=== PATIENT | female | born 1965 | race Caucasian/White ===

== ENCOUNTER 2025-08-25 21:30 | Outpatient (CLI) | payer BC, SELFPAY | END 2025-08-25 21:31 | disposition home or self-care (01) | LOC: AMB 08-29 12:18 | PROVIDERS: Visit Provider Emergency Medicine | DX: M54.9 Dorsalgia, unspecified (principal) | CPT/HCPCS: A0425; A0429 ==

== ENCOUNTER 2025-08-25 22:13 | Emergency (ER) | payer BC, SELFPAY ==
[2025-08-25 22:18] VITALS: BP 139/80; PULSE 94; RESP 18; TEMP 36.6; O2SAT 98; BMI 25.8
--- NOTE | 2025-08-25 23:01 | ED_ITS ---
HPI - General Adult General Chief complaint: Back Injury/Pain Stated complaint: back pain Time Seen by Provider: 08/25/25 22:25 History of Present Illness HPI narrative: back pain started this AM , states worsened throughout day. sharp pain. lidocaine patch , tylenol ibuprofen. pain 8/10. hurts with movement, no radiation down legs. no hx in past, denies trauma. no numbness. IV EMS 20 LFA no meds 60-year-old woman presenting to the emergency department with complaint of s evere low back pain. Began this morning around waking and has escalated throughout the course the day. She noted at some point screaming in pain. Does have a history of a flare of back pain some years ago but not as bad as this. Otherwise typically does not have back pain. This escalated to the point of knowing that she just simply was not going to be able to move. Had been trying some ibuprofen, acetaminophen, lidocaine patch. Arrives via EMS. Review of Systems Status of ROS: Reports: 6 or more systems reviewed and unremarkable except as noted in History and below PFSH PFS Social History Smoking Status: Never smoker Second hand tobacco smoke exposure: No How often do you have a drink containing alcohol: never AUDIT-C Alcohol total score: 0 Non-prescribed substance use: denies use Exam Narrative: Exam Narrative: Arise crying out in pain. Pain has settled again by the time I arrived to see Ms. Mishra. Is clearly uncomfortable. Seated stiffly in exam chair hesitant to move. Straight leg raise is negative but on the left does start to cause more pulling. Has pain in SI joint area to palpation left greater than right. Generally quite tense back musculature. No midline back pain. Const: Vital Signs, click to edit/add: Vital Signs - 24 hr 08/25/25 22:18 Temperature 98 F Pulse Rate [Pulse Oximeter] 94 Respiratory Rate 18 Blood Pressure [Ri ght Upper Arm] 139/80 Pulse Oximetry 98 Oxygen Delivery Me thod Room Air Documenting provider has reviewed patient's vital signs: yes Course Vital Signs Vital signs: Initial Vital Signs Temperature 98 F 08/25/25 22:18 Temperature Source Temporal Artery Scan 08/25/25 22:18 Pulse Rate 94 08/25/25 22:18 Respiratory Rate 18 08/25/25 22:18 Blood Pressure 139/80 08/25/25 22:18 Blood Pressure Mean 99 08/25/25 22:18 Blood Pressure Position Sitting 08/25/25 22:18 Pulse Oximetry 98 08/25/25 22:18 Oxygen Delivery Method Room Air 08/25/25 22:18 Vital Signs Temperature 98 F 08/25/25 22:18 Pulse Rate 94 08/25/25 22:18 Respiratory Rate 18 08/25/25 22:18 Blood Pressure 139/80 08/25/25 22:18 Pulse Oximetry 98 08/25/25 22:18 Oxygen Delivery Method Room Air 08/25/25 22:18 Temperature 98 F 08/26/25 01:34 Pulse Rate 81 08/26/25 01:34 Respiratory Rate 18 08/26/25 01:34 Blood Pressure 135/87 08/26/25 01:34 Pulse Oximetry 98 08/26/25 01:18 Oxygen Delivery Method Room Air 08/26/25 01:18 Medications Administered Medications: Discontinued Medications Generic Name Dose Route Start Last Admin Trade Name Shelton PRN Reason Stop Dose Admin Diazepam 5 mg 08/25/25 23:25 08/25/25 23:33 Diazepam 5 Mg/Ml Inj IV 08/25/25 23:26 5 mg ONCE ONE Administration Hydromorphone HCl 0.5 mg 08/25/25 23:25 08/25/25 23:33 Hydromorphone 0.5 Mg/0.5 Ml Inj IVP 08/25/25 23:26 0.5 mg ONCE ONE Administration Ketorolac Tromethamine 15 mg 08/25/25 23:25 08/25/25 23:33 Ketorolac 15 Mg/Ml Inj IVP 08/25/25 23:26 15 mg ONCE ONE Administration Prednisone 60 mg 08/25/25 23:25 08/25/25 23:33 Prednisone 20 Mg Tablet PO 08/25/25 23:26 60 mg ONCE ONE Administration Medical Decision Making MDM Narrative Medical decision making narrative: Has not had any particular trauma. Does not have the kind of radicular symptoms that I would suspect to be discogenic. I think this is some combination of sacral iliac joint dysfunction or perhaps facet irritation of the low back that has also resulted in runaway muscle spasm. While she is anticipating having to soil herself not being able to move for pain, this is not actually a loss of bowel or bladder control. Will address symptoms primarily here. Will be giving at same time ketorolac, diazepam, hydromorphone, prednisone. On reassessment overall is improved. Able to mobilize though still with flares of pain. Less so. Did discuss potential admission but feels would like to be able to manage at home. Following discharge was called to assist further as was experiencing significant pain when Alejandra got into their vehicle. Appeared to be particularly tense and in pain in the paraspinal musculature of the mid low back on the left. Had considered binder of some sort but did then at this point go to get an abdominal binder which we fit in place in front seat of car. She did feel that this was somewhat helpful. See patient discharge plan for further discussion I am happy you're feeling better. You received a dose of Dilaudid, Valium, ketorolac and some prednisone. Of course take it easy with transitions. I would consider applying ice packs to your low back over the next couple of days. Take 400-600 mg of ibuprofen 3 times daily over the next 4 days; ideally with little food. As discussed from [employer] I am prescribing a ?muscle relaxer? cyclobenzaprine, prednisone, Percocet (contains oxycodone 5 mg (an opiate) and 325 mg of acetaminophen in each tablet) See handout for some stretches for sacroiliac joint pain and low back pain that might be helpful to do longer-term. I would consider following up in 5-7 days for a re-evaluation and hopefully more clear diagnosis. Return for marked increase in persistent/uncontrolled pain, new and focal weakness. Medical Records Medical records reviewed: Yes I reviewed the patient's medical records Discharge Plan Discharge Clinical Impression: Severe low back pain Patient Disposition: Home w/ Parent or Adult Condition: Improved Instructions: Acute Low Back Pain (ED) Additional Instructions: I am happy you're feeling better. You received a dose of Dilaudid, Valium, ketorolac and some prednisone. Of course take it easy with transitions. I would consider applying ice packs to your low back over the next couple of days. Take 400-600 mg of ibuprofen 3 times daily over the next 4 days; ideally with little food. As discussed from [employer] I am prescribing a ?muscle relaxer? cyclobenzaprine, prednisone, Percocet (contains oxycodone 5 mg (an opiate) and 325 mg of acetaminophen in each tablet) See handout for some stretches for sacroiliac joint pain and low back pain that might be helpful to do longer-term. I would consider following up in 5-7 days for a re-evaluation and hopefully more clear diagnosis. Return for marked increase in persistent/uncontrolled pain, new and focal weakness. Follow Up/Referrals: Provider,Not a Local [Primary Care Provider, Family Practice] Stand Alone Forms: [employer] Info Instructions
[2025-08-25] MEDS: diazePAM 5 MG/ML inj IV (23:33)
[2025-08-25 23:40] VITALS: O2SAT 98
--- OUTSIDE RECORDS SUMMARY | 2025-08-26 00:04 | XMS_ITS | Clinical Summary ---
Author Organization [employer] Address [address] [place] [id number] Care Team Providers Care Cable Installation Manager Name Role Phone Pcp, No Primary Care Provider Unavailabl e Allergies No known active allergies Medications albuterol sulfate (ALBUTEROL INHL) Inhale 90 mcg by mouth 4 times daily if needed (sob). Active buPROPion (WELLBUTRIN XL) 150 mg Extended-Release tablet Take 300 mg by mouth once daily. Active hydrOXYzine HCL (ATARAX) 25 mg tablet Take 25 mg by mouth every 6 hours if needed for Itching or Anxiety. Active meloxicam (Mobic) 15 mg tablet Take 15 mg by mouth once daily. Active SEMIWEEKLY patch estradiol (Vivelle-Dot) 0.05 mg/24 hr SEMIWEEKLY transdermal patch Apply 1 Patch on dry, clean, hairless skin every Thursday and . Active PROGESTERONE 50 MG VAGINAL SUP (AHC AMB MIXTURE) Active traMADoL (Ultram) 50 mg tabletIndication s:Tear of medial meniscus of knee, current, unspecified laterality, unspecified tear type, initial encounter Take 1 Tablet (50 mg) by mouth every 6 hours if needed for Pain. 16 Tablet 4 Active Active Problems No known active problems Social History Tobacco Use Types Packs/Day Years Used Date Smoking Tobacco: Never Passive Smoke Exposure: Never Smokeless Tobacco: Never Tobacco Cessation:Counseling Given: No Comments:never Alcohol Use Standard Drinks/Week Comments Yes 0 (1 standard drink = 0.6 oz pur e alcohol) 2-3x week, wine Comments No Sex and Gender Information Value Date Recorded Sex Assigned at Not on file Legal Sex Female 7:46 AM CDT Gender Identity Not on file Sexual Orientation Not on file Obstetrics History Last Filed Vital Signs Vital Sign Reading Time Taken Comments Blood Pressure 110/61 09/22/2024 2:55 PM [employer] Pulse 68 09/22/2024 2:55 PM [employer] Temperature 36.5 C (97.7 F) 09/22/2024 2:09 PM [employer]PER[employer] Respiratory Rate 16 09/22/2024 2:55 PM [employer] OPER[employer] Oxygen Saturation 97% 09/22/2024 2:55 PM [employer] OPER[employer] Inhaled Oxygen Concentration - - Weight 71.3 kg (157 lb 3.2 oz) 09/22/2024 11:42 AM [employer]ONE MILL OPERATOR Height 166.5 cm (5' 5.55) 09/08/2024 12:[address] Body Mass Index 25.72 09/08/2024 12:00 PM [employer]ONE MILL OPERATOR Plan of Treatment Health Maintenance Due Date Last Done Comments Tetanus booster 1975 Depression screening for age 12+ 1976 HIV for age 15-65 1979 BMI (ht and wt on same day) for age 18+ 1982 Hepatitis C screening for ag e 18-79 1982 Pap test for age 21-65 1985 Lipids for age 45-75 2009 Mammogram for age 45-75 2009 Pneumococcal series for age 50+ (1 of 1 - PCV) 2014 Zoster (shingles) series for age 50+ (1 of 2) 2014 COVID-19 vaccine series (2 - season) 2025 11/05/2021 Influenza Vaccine (#1) 2025 Colonoscopy through age 75 08/25/2032 08/25/2022 RSV vaccine for adults or (1 - 1-dose 75+ series) 2039 Hepatitis B series for 19+ Aged Out N o longer eligible based on patient's age to complete this topic Procedures Procedure Name Priority Date/Time Associated Diagnosis Comments COLONOSCOPY 08/25/2022 8:04 AM CDT from Last 3 Months or Most Recently Relevant to Health Maintenance Results * COLONOSCOPY (08/25/2022 8:04 AM CDT) 08/25/2022 8:04 AM CDT Narrative Transcriptions Dina Coffey MD - 08/25/2022 8:57 AM CDT Patient Name: Alejandra Mishra Procedure Date: 08/25/2022 Gender: Female Date of : 1965 Admit Type: Ambulatory Procedure: Colonoscopy Proceduralist: Dina Coffey MD [facility] Referring MD: Brandy Barraza Indications/Pre-Op Diagnosis: Screening for colorectal malignantneoplasm Medications: Monitored Anesthesia Care Procedure Description: The procedure, indications, potential complications, (bleeding, perforation, infection, adverse medication reaction, missed lesionsor polyps) and alternatives available were explained to the patient, who appeared to understand and indicated this. Opportunity for questionswas provided and informed consent obtained. The endoscope [id number] was passed through the anus andadvanced to the terminal ileum, with identification of the appendiceal orifice and IC valve. The colonoscopy was somewhat difficult due to atortuous colon. Successful completion of the procedure was aided by usingmanual pressure. The patient tolerated the procedure well. The quality ofthe bowel preparation was evaluated using the BBPS (Grethel BowelPreparation Scale) with scores of: Right Colon = 2 (minor amount of residual staining, small fragments of stool and/or opaque liquid, but mucosaseen well), Transverse Colon = 3 (entire mucosa seen well with no residual staining, small fragments of stool or opaque liquid) and Left Colon =2 (minor amount of residual staining, small fragments of stool and/or opaque liquid, but mucosa seen well). The total BBPS score equals 7. Scope withdrawal time was 20 minutes. Complications: No immediate complications. Estimated Blood Loss & Specimen: Estimated blood loss was minimal. Findings: The perianal and digital rectal examinations were normal. Four semi-sessile polyps were found in the rectum, descending colonand cecum. The polyps were 2 to 4 mm in size. These polyps were removedwith a cold snare. Resection and retrieval were complete. The terminal ileum appeared normal. No additional abnormalities were found on retroflexion. Impressions/Post-Op Diagnosis: - Four 2 to 4 mm polyps in the rectum, in the descending colon and in the cecum, removed with a cold snare. Resected and retrieved. - The examined portion of the ileum was normal. Recommendation: - Discharge patient to home. - High fiber diet. - Continue present medications. - Await pathology results. Moderate Sedation: Mac Dina Coffey MD 08/25/2022 8:57:17 AM Note Initiated On: 08/25/2022 8:04 AM Dina Coffey MD PROCEDURE ORD Final Res ult from Last 3 Months or Most Recently Relevant to Health Maintenance Insurance [facility] Advance Directives * Full Code (Latest Code Status on File) Date Activated Date Inactivated Comments 09/22/2024 11:16 AM 09/22/2024 5:23 PM Question Answer Comments Code Status Discussion: Reviewed Preferences * Full Code Date Activated Date Inactivated Comments 09/17/2020 5:56 AM 09/17/2020 12:08 PM Question Answer Comments Code Status Discussion: Per Existing Order Care Teams Cable Installation Manager Relationship Specialty Start Date End Date Pcp, No . PCP - General 08/05/22
[2025-08-26 01:15] VITALS: TEMP 36.6
[2025-08-26 01:18] VITALS: BP 135/87; PULSE 81; RESP 18; TEMP 36.6; O2SAT 98
[2025-08-26 01:34] VITALS: BP 135/87; PULSE 81; RESP 18; TEMP 36.6
== END 2025-08-26 01:34 | disposition home or self-care (01) ==
PROVIDERS: Emergency Provider Family Medicine
DX: M54.50 Low back pain, unspecified (principal)
CPT/HCPCS: 94761; 96374; 96375; 99283; 99284; J1171; J1885; J3360; J7512